=== PATIENT | female | born 1990 | race Two or more races ===

== ENCOUNTER → 2025-06-18 | Emergency (ER) | payer OTHER ==
[~2025-06-18] VITALS: Ht 165.1 cm; Wt 72.7 kg
[2025-06-18 21:38] VITALS: BP 120/69; PULSE 94; RESP 18; TEMP 97.8; O2SAT 97
== END | disposition left against medical advice (07) ==
LOC: EDBD 20:56 → ER 20:56
DX: T63.301A Toxic effect of unspecified spider venom, accidental (unintentional), initial encounter (principal); Z53.21 Procedure and treatment not carried out due to patient leaving prior to being seen by health care provider; Y92.89 Other specified places as the place of occurrence of the external cause